=== PATIENT | female | born 1980 | race Caucasian/White ===

== ENCOUNTER 2017-06-20 13:18 | Emergency (ER) | payer MEDICAID ==
[2017-06-20 14:28] LABS: APPEARANCE SLT CLOUDY (CLEAR); BILIRUBIN NEGATIVE (NEGATIVE); COLOR YELLOW (YELLOW); GLUCOSE NEGATIVE (NEGATIVE); KETONE NEGATIVE (NEGATIVE); NITRITE NEGATIVE (NEGATIVE); PROTEIN NEGATIVE (NEGATIVE); SPECIFIC GRAVITY 1.015 (1.005-1.020); UROBILINOGEN NORMAL (NORMAL)
[2017-06-20 14:30] LABS: BACTERIA MODERATE /hpf (NONE SEEN); EPITHELIAL CELLS 0-5 /hpf (0-5); MUCUS <1+ /lpf (NONE SEEN); RED CELLS - URINE 0-5 /hpf (0-5); WHITE CELLS - URINE 25-50 /hpf (0-5)
[2017-06-20 15:24] LABS: BASOPHILS 0.3 % (0-2); EOSINOPHILS 2.3 % (0-7); HEMATOCRIT 40.2 % (36.0-48.0); HEMOGLOBIN 13.6 g/dL (12-16); IMMATURE GRANULOCYTES 0.3 % (0-5); LYMPHOCYTES 31.4 % (15-50); MCH 31.5 pg (26.0-34.0); MCHC 33.8 g/dL (31.0-37.0); MCV 93.1 fL (80.0-100.0); MEAN PLATELET VOLUME 10.3 fL (7.4-10.4); MONOCYTES 11.4 % (2-11); NEUTROPHILS 54.3 % (40-80); PLATELET COUNT 209 10x3/uL (130-400); RBC 4.32 10x6/uL (4.00-5.40); RDW 12.7 % (11.5-14.5); WBC 10.4 10x3/uL (4.8-10.8)
[2017-06-20 15:47] LABS: ALBUMIN 3.7 g/dL (3.4-5.0); ALKALINE PHOSPHATASE 67 U/L (46-116); ALT (SGPT) 19 U/L (10-68); BILIRUBIN - TOTAL 0.16 mg/dL (0.2-1.3); CALC OSMOLALITY 274 mosm/kg (275-300); CALCIUM 8.9 mg/dL (8.5-10.1); CARBON DIOXIDE 27.2 mmol/L (21.0-32.0); CHLORIDE - SERUM 103 mmol/L (98-107); CREATININE - SERUM 0.6 mg/dL (0.6-1.3); GLUCOSE 94 mg/dL (74-106); POTASSIUM - SERUM 3.9 mmol/L (3.5-5.1); PROTEIN - SERUM 6.8 g/dL (6.4-8.2); SODIUM 137 mmol/L (136-145); UREA NITROGEN 16 mg/dL (7-18); eGFR NON AFRICAN AMERICAN > 90 mL/min (90-120)
== END 2017-06-20 17:45 | disposition home or self-care (01) ==
LOC: EDBD 13:18 → D.ER 13:18
PROVIDERS: Emergency Medicine; Nurse Practitioner Family
DX: N39.0 Urinary tract infection, site not specified (principal); R10.2 Pelvic and perineal pain; N83.8 Other noninflammatory disorders of ovary, fallopian tube and broad ligament; F17.200 Nicotine dependence, unspecified, uncomplicated

== ENCOUNTER → 2020-07-31 13:35 | Outpatient (CLI) | payer OTHER | END | disposition home or self-care (01) | LOC: D.US 13:35 | DX: R10.11 Right upper quadrant pain (principal) ==

== ENCOUNTER 2020-08-06 14:17 | Emergency (ER) | payer OTHER ==
[~2020-08-06] VITALS: Ht 172.7 cm; Wt 77.3 kg
[2020-08-06 14:21] VITALS: Ht 172.7 cm; Wt 77.3 kg
[2020-08-06 14:56] LABS: BASOPHILS 0.2 % (0-2); EOSINOPHILS 3.3 % (0-7); HEMOGLOBIN 14.1 g/dL (12-16); IMMATURE GRANULOCYTES 0.6 % (0-5); LYMPHOCYTE ABS# 4.36 10x3/uL (1.18-3.74); LYMPHOCYTES 34.7 % (15-50); MCH 31.5 pg (26.0-34.0); MCHC 33.6 g/dL (31.0-37.0); MCV 93.8 fL (80.0-100.0); MEAN PLATELET VOLUME 10.8 fL (7.4-10.4); MONOCYTES 7.8 % (2-11); NEUTROPHIL ABS# 6.71 10x3/uL (1.56-6.13); NEUTROPHILS 53.4 % (40-80); RBC 4.48 10x6/uL (4.00-5.40); RDW 13.2 % (11.5-14.5); WBC 12.6 10x3/uL (4.8-10.8)
[2020-08-06 14:57] LABS: PLATELET COUNT 269 10x3/uL (130-400)
[2020-08-06 15:01] LABS: CALC OSMOLALITY 272 mosm/kg (275-300); CALCIUM 8.7 mg/dL (8.5-10.1); CARBON DIOXIDE 27.5 mmol/L (21.0-32.0); CHLORIDE - SERUM 102 mmol/L (98-107); CREATININE - SERUM 0.9 mg/dL (0.6-1.3); GLUCOSE 93 mg/dL (74-106); POTASSIUM - SERUM 3.8 mmol/L (3.5-5.1); SODIUM 137 mmol/L (136-145); UREA NITROGEN 10 mg/dL (7-18); eGFR NON AFRICAN AMERICAN 73 mL/min (90-120)
[2020-08-06 15:02] LABS: BILIRUBIN NEGATIVE (NEGATIVE); KETONE NEGATIVE (NEGATIVE); NITRITE POSITIVE (NEGATIVE); UROBILINOGEN NORMAL mg/dL (< 2)
[2020-08-06 15:03] LABS: BACTERIA MANY HPF (NONE SEEN); SQUAMOUS EPITHELIAL 0-5 HPF (0-4); WHITE CELLS - URINE 0-5 HPF (0-4)
[2020-08-06 15:07] LABS: HCG URINE NEGATIVE (NEGATIVE)
[2020-08-06 15:10] LABS: ALBUMIN 3.6 g/dL (3.4-5.0); ALKALINE PHOSPHATASE 71 U/L (30-120); ALT (SGPT) 28 U/L (10-68); AMYLASE - SERUM 36 U/L (25-115); BILIRUBIN - TOTAL 0.38 mg/dL (0.2-1.3); LIPASE 137 U/L (73-393)
[2020-08-06 15:24] LABS: TROPONIN-I < 0.017 ng/mL (0.000-0.060)
[2020-08-06] MEDS ORDERED: MACROBID100 MG PO (15:49)
[2020-08-06] MEDS ORDERED: CEPHALEXIN500 M1 PO (15:49)
[2020-08-06 16:24] VITALS: BP 93/48
== END 2020-08-06 16:37 | disposition home or self-care (01) ==
LOC: D.ER 14:17
PROVIDERS: Family Medicine
DX: R10.11 Right upper quadrant pain (principal); N39.0 Urinary tract infection, site not specified

== ENCOUNTER 2020-10-05 06:32 | Day surgery (SDC) | payer OTHER ==
[~2020-10-05] VITALS: Ht 172.7 cm; Wt 79.5 kg
--- NOTE | ~2020-10-05 | OP ---
PATIENT NAME: NAEEM FONSECA MEDICAL RECORD: [id number] :78 LOCATION:[facility] ADMISSION DATE: SURGEON: DANIEL HEARN MD DATE OF OPERATION: 10/05/2020 PROCEDURE: Colonoscopy. PREOPERATIVE DIAGNOSES: Ms. Fonseca is a pleasant 39-year-old female who comes in with history of diarrhea and crampy abdominal pain. MEDICATION: Propofol per anesthesia 300 mg. DESCRIPTION OF PROCEDURE: The patient was made comfortable in the left lateral position. Colonoscopy was performed. The colonoscope was inserted through the rectum and advanced to the cecum, identified by the ileocecal valve and the appendiceal orifice. The quality of the prep was good. In the sigmoid colon, was a 6 mm polyp. This was removed with hot snare polypectomy. There were nonbleeding internal hemorrhoids viewed on retroflexion. Given the patient's history of intermittent diarrhea, stool samples and random colon biopsies were taken with cold biopsy forceps. The patient tolerated the procedure well. There were no immediate complications. FINAL DIAGNOSES: A 6-mm sigmoid polyp, internal hemorrhoids, random colon biopsies and stool samples taken. PLAN: Check histology results. Advance diet. Recommend repeat colonoscopy in 2 years given good to fair prep. TRANSINT:[id number] Voice Confirmation ID: [id number] DOCUMENT ID: [id number] DANIEL HEARN MD CC: [id number] DICTATION DATE: 10/05/20906 GRADE TAMPER: 10/05/20955 [facility] [address] [place] [address]
[~2020-10-05 06:32] MED LIST: CEPHALEXIN500 M1 PO; MACROBID100 MG PO
[2020-10-05 06:49] LABS: EOSINOPHILS 3.8 % (0-7); HEMATOCRIT 39.1 % (36.0-48.0); HEMOGLOBIN 13.2 g/dL (12-16); LYMPHOCYTES 32.2 % (15-50); MCH 31.3 pg (26.0-34.0); MCHC 33.8 g/dL (31.0-37.0); MCV 92.7 fL (80.0-100.0); MEAN PLATELET VOLUME 8.7 fL (7.4-10.4); MONOCYTES 8.8 % (2-11); NEUTROPHILS 54.2 % (40-80); PLATELET COUNT 230 10x3/uL (130-400); RBC 4.22 10x6/uL (4.00-5.40); RDW 13.4 % (11.5-14.5); WBC 9.3 10x3/uL (4.8-10.8)
[2020-10-05 07:16] LABS: ALBUMIN 3.5 g/dL (3.4-5.0); ANION GAP 10.1 mmol/L (8-16); BILIRUBIN - TOTAL 0.29 mg/dL (0.2-1.3); CALCIUM 8.4 mg/dL (8.5-10.1); CARBON DIOXIDE 27.3 mmol/L (21.0-32.0); CREATININE - SERUM 0.9 mg/dL (0.6-1.3); POTASSIUM - SERUM 3.4 mmol/L (3.5-5.1); PROTEIN - SERUM 6.5 g/dL (6.4-8.2)
[2020-10-05] MEDS ORDERED: XANAX1 MG PO (07:40)
[2020-10-05] MEDS ORDERED: SEROQUEL300 MG (07:40)
[2020-10-05 07:59] VITALS: BP 93/59; Ht 172.7 cm; Wt 79.5 kg
--- NOTE | 2020-10-05 09:32 | NUR ---
AT BEDSIDE 1007 DC TEACHING COMPLETE, VERBALIZED UNDERSTANDING. PIV REMOVED, CATHETER INTACT, PT DRESSING. 1010 PT DC'D BY GOPAL YO TO POV WITH ALL BELONGINGS AND DC PACKET.
== END 2020-10-05 10:10 | disposition home or self-care (01) ==
LOC: D.OPS 06:32
PROVIDERS: ATTEND Internal Medicine Gastroenterology
DX: K63.5 Polyp of colon (principal); R10.9 Unspecified abdominal pain; R19.7 Diarrhea, unspecified; R11.2 Nausea with vomiting, unspecified

== ENCOUNTER 2020-10-12 06:05 | Day surgery (SDC) | payer OTHER ==
[2020-10-08 21:06] LABS: OVA + PARASITE EXAM Final report (())
[~2020-10-12] VITALS: Ht 172.7 cm; Wt 77.3 kg
[~2020-10-12 06:05] MED LIST changes: +SEROQUEL300 MG PO; +XANAX1 MG PO
[2020-10-12 06:36] LABS: BASOPHILS 0.7 % (0-2); EOSINOPHILS 2.3 % (0-7); HEMATOCRIT 40.2 % (36.0-48.0); HEMOGLOBIN 13.6 g/dL (12-16); MCH 31.2 pg (26.0-34.0); MCHC 33.8 g/dL (31.0-37.0); MCV 92.3 fL (80.0-100.0); MEAN PLATELET VOLUME 8.9 fL (7.4-10.4); MONOCYTES 9.2 % (2-11); NEUTROPHILS 64.8 % (40-80); PLATELET COUNT 242 10x3/uL (130-400); RBC 4.36 10x6/uL (4.00-5.40)
[2020-10-12 06:56] LABS: CALCIUM 8.6 mg/dL (8.5-10.1); CARBON DIOXIDE 27.7 mmol/L (21.0-32.0); CREATININE - SERUM 0.9 mg/dL (0.6-1.3); POTASSIUM - SERUM 3.7 mmol/L (3.5-5.1)
[2020-10-12 07:01] VITALS: Ht 172.7 cm; Wt 77.3 kg
--- NOTE | 2020-10-12 08:55 | NUR ---
DC TEACHING COMPLETE TO PT AND SON. VERBALIZED UNDERSTANDING. 904 AT BEDSIDE 916 PIV REMOVED, CATHETER INTACT. PT DRESSING ORDER FOR F/U APPT FAXED. 1154 PT DC'D VIA WC ACCOMPANIED BY PARAG TO POV WITH ALL BELONGINGS AND DC PACKET. SON DRIVING
--- NOTE | 2020-10-12 12:40 | OP ---
PATIENT NAME: NAEEM FONSECA MEDICAL RECORD: [id number] :78 LOCATION:[facility] ADMISSION DATE: SURGEON: DANIEL HEARN MD DATE OF OPERATION: 10/12/2020 PROCEDURE: Upper endoscopy. PREOPERATIVE DIAGNOSES: Ms. Fonseca is a pleasant 39-year-old female who has a history of acid reflux, globus sensation, and nausea. MEDICATION: Propofol per anesthesia. DESCRIPTION OF PROCEDURE: The patient was placed in the left lateral position. The endoscope was advanced through the mouth and advanced to the second part of the duodenum. The entire examined esophagus was normal. In the gastric body, there was mild erythema consistent with gastritis. Random gastric biopsies were taken. The entire examined duodenum was normal. Small bowel biopsies were taken. The patient tolerated the procedure well. There were no immediate complications. FINAL DIAGNOSES: Normal esophagus, mild gastritis, normal duodenum. PLAN: Check histology results. Advance diet. This patient is not on a proton pump inhibitor; therefore, I will write a prescription for Protonix today, and she will follow up in the gastroenterology office. TRANSINT:[id number] Voice Confirmation ID: [id number] DOCUMENT ID: [id number] DANIEL HEARN MD at 1240 CC: [id number] DICTATION DATE: 10/12/20830 FIBERGLASS LAMINATOR: 10/12/[address] [facility] 10/12/20 [id number] [place] [address]
== END 2020-10-12 09:30 | disposition home or self-care (01) ==
LOC: D.OPS 06:05
PROVIDERS: ATTEND Internal Medicine Gastroenterology
DX: K21.9 Gastro-esophageal reflux disease without esophagitis (principal); R11.0 Nausea; K29.70 Gastritis, unspecified, without bleeding; R10.11 Right upper quadrant pain; R09.89 Other specified symptoms and signs involving the circulatory and respiratory systems; R12 Heartburn